=== PATIENT | female | born 2000 | race Caucasian/White ===

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

== ENCOUNTER 2018-12-21 09:59 | Emergency (ER) | payer BC, OTHER ==
[~2018-12-21] VITALS: Ht 157.5 cm; Wt 76.0 kg
[~2018-12-21 09:59] MED LIST: CIPR500T4 PO; HYDR-4011 PO; IBUP-1542 PO; PHEN-538 PO
[2018-12-21 10:01] VITALS: BP 134/78; PULSE 84; RESP 16; Ht 157.5 cm; Wt 76.0 kg
--- NOTE | 2018-12-21 10:31 | ERD ---
ER Documentation Chief Complaint Chief Complaint pt is bib family right sided back pain x 2 wks HPI Patient is a 18 years old female with no known PMHx presenting to the clinic for persistent cough x 1 month. Patient reports of right mid back pain x 2 weeks that worsens with cough. Patient states that she felt a "pop" sensation and a "moving" sensation yesterday and now the pain worsened and rates it 8/10. Patient reports seeing her PCP and was given cough syrup and allergy medication without resolution. Patient admits to associated yellow sputum production and denies fever, chills, night sweats, nausea, emesis, dysuria, and . ROS All systems reviewed and are negative except as per history of present illness. Medications Home Meds Active Scripts Xxgauqbafur-A-[id number] Hb* (Guaifenesin* DM Syrup) 120 Ml Syrup, 10 ML PO Q4H PRN for COUGH for 7 Days, #120 ML Prov:CHICO FRANCOIS PA-C 12/21/18 Ibuprofen* (Motrin*) 800 Mg Tab, 800 MG PO Q6, #30 TAB Prov:CHICO FRANCOIS PA-C 12/21/18 Methylprednisolone* (Medrol* DOSE PACK) 4 Mg/Dose-Pack Tab.ds.pk, 4 MG PO . DIRECTED for 5 Days, PACKET Prov:CHICO FRANCOIS PA-C 12/21/18 Ibuprofen* (Motrin*) 600 Mg Tab, 600 MG PO Q6H PRN for PAIN AND OR ELEVATED TEMP, #30 TAB Prov:IVANA NEWBERRY NP 04/08/17 Ciprofloxacin Hcl* (Ciprofloxacin Hcl*) 500 Mg Tablet, 500 MG PO BID for 10 Days, TAB Prov:IVANA NEWBERRY NP 04/08/17 Phenazopyridine Hcl* (Pyridium*) 200 Mg Tab, 200 MG PO TID PRN for URINARY PAIN, #6 TAB Prov:IVANA NEWBERRY NP 04/08/17 Hydrocodone/Acetaminophen ([facility]-325 Tablet) 1 Each Tablet, 1 TAB PO Q6H PRN for PAIN, #20 TAB Prov:IVANA NEWBERRY NP 04/08/17 Reported Medications [none] Unknown Strength No Conflict Check 04/07/17 Allergies Allergies: Coded Allergies: No Known Allergy (Unverified , 04/07/17) PMhx/Soc Medical and Surgical Hx: pt denies Medical Hx, pt denies Surgical Hx History of Surgery: No Anesthesia Reaction: No Hx Neurological Disorder: No Hx Respiratory Disorders: No Hx Cardiac Disorders: No Hx Psychiatric Problems: No Hx Miscellaneous Medical Probl: No Hx Alcohol Use: No Hx Substance Use: No Hx Tobacco Use: No Smoking Status: Never smoker Physical Exam Vitals Vital Signs Date Temp Pulse Resp B/P (MAP) Pulse Ox O2 O2 Flow FiO2 Time Delivery Rate 12/21/18 99.0 84 16 134/78 98 10:01 (96) Physical Exam Const: No acute distress Head: Atraumatic Eyes: Normal Conjunctiva ENT: Normal External Ears, Nose and Mouth. Neck: Full range of motion. No meningismus. Resp: Clear to auscultation bilaterally Cardio: Regular rate and rhythm, no murmurs Abd: Soft, non tender, non distended. Normal bowel sounds Skin: No petechiae or rashes Back: No midline or flank tenderness Ext: No cyanosis, or edema Neur: Awake and alert Psych: Normal Mood and Affect Results 24 hrs Laboratory Tests Test 12/21/18 10:47 Bedside Urine pH (LAB) 7.0 Bedside Urine Protein (LAB) Negative Bedside Urine Glucose (UA) Negative Bedside Urine Ketones (LAB) Negative Bedside Urine Blood Trace-intact Bedside Urine Nitrite (LAB) Negative Bedside Urine Leukocyte Esterase (L Negative POC Beta HCG, Qualitative NEGATIVE Current Medications Medications Dose Sig/Emmy Start Time Status Last (Trade) Ordered Route PRN Stop Time Admin Dose Reason Admin 125 mg ONCE ONCE 12/21/18 DC 12/21/18 Methylprednis IM 11:00 10:56 olone Sodium 12/21/18 11:01 Succinate (Solu-Medrol) Ibuprofen 800 mg ONCE ONCE 12/21/18 DC 12/21/18 (Motrin) PO 11:00 10:54 12/21/18 11:01 750 mg ONCE ONCE 12/21/18 DC 12/21/18 Methocarbamol PO 11:30 12:03 (Robaxin) 12/21/18 11:31 Procedures/MDM Patient was seen and evaluated for right mid back pain that's worse with cough. CXR revealed No evidence for active cardiopulmonary disease. Low suspicion for rib fracture due to no rib tenderness on physical exam. Urinalysis is unremarkable. urine is negative. Patient denied improvement with Solumedrol IM and ibuprofen 800mg PO in ED, which was followed by Robaxin 750mg PO. Patient is stable and ready for discharge. F/U with PCP. Patient is most likely experiencing pleuritis with cough. Patient will be discharged with Ibuprofen, medrol dosepak, guaifenesin DM. Departure Diagnosis: Primary Impression: Pleuritis Additional Impression: Cough Condition: Stable Patient Instructions: Cough, Chronic, Uncertain Cause, (Adult) Referrals: [facility] Additional Instructions: Patient advised to return to the ED immediately for new or worsening symptoms. Patient advised to follow up with primary care provider in the next 24-48 hours. Patient verbalized understanding and agrees with treatment plan and course of action. If patient has no primary care they may follow up with [facility] + [facility] [address] [place] [id number] or [facility] [address] [place] [address] or [facility] [address] [place] [address] CHICO FRANCOIS PA-C Dec 21, 2018 10:31
[2018-12-21] MEDS ORDERED: METHYLPREDNISOLONE 125 MG INJ IM ONE (11:00)
[2018-12-21] MEDS ORDERED: IBUPROFEN 800 MG TAB PO ONE (11:00)
[2018-12-21] MEDS ORDERED: GUAI120S25 PO (11:15)
[2018-12-21] MEDS ORDERED: IBUP800T48 PO (11:15)
[2018-12-21] MEDS ORDERED: MED4DP PO (11:15)
[2018-12-21] MEDS ORDERED: METHOCARBAMOL 750 MG TAB PO ONE (11:30)
== END 2018-12-21 12:30 | disposition home or self-care (01) ==
LOC: FTE 09:59
DX: R05 Cough (principal); R09.1 Pleurisy
CPT/HCPCS: 71046; 81003; 81025; 96372; 99284; J2930